=== PATIENT | female | born 1960 | race Caucasian/White ===

== ENCOUNTER 2016-12-13 10:52 | Emergency (ER) | payer MEDICARE ==
[2016-12-13 11:49] VITALS: BP 152/66
--- NOTE | 2016-12-13 12:46 | UC ---
Throat Pain/Nasal Haresh HPI - HPI Summary HPI Summary: complaint of nasal congestion and cough and right ear pain that started 2 days ago woke up this morning with sore throat slight headache denies fever and chills denies N/V/D denies feeling muscle aches hasn't neede to use albuterol inhaler during this illness using nasal spray and allergy medication without relief - History of Current Complaint Chief Complaint: UCRespiratory Stated Complaint: EARS/CONGESTION Time Seen by Provider: 12/13/16 12:40 Hx Obtained From: Patient Hx Last Menstrual Period: Years ago/hyst - Allergies/Home Medications Allergies/Adverse Reactions: Allergies Allergy/AdvReac Type Severity Reaction Status Date / Time Ciprofloxacin [From Cipro] Allergy Hives Verified 12/13/16 11:48 Meloxicam Allergy GI Upset Verified 12/13/16 11:48 Penicillins Allergy Hives Verified 12/13/16 11:48 Sulfa Antibiotics Allergy GI Upset Verified 12/13/16 11:48 Home Medications: Home Medications Sitagliptin Phosphate [Januvia] 100 mg PO DAILY 12/13/16 [History Confirmed 01/24] PMH/Surg Hx/FS Hx/Imm Hx Previously Healthy: Yes Endocrine History Of: Reports: Diabetes, Dyslipidemia Denies: Thyroid Disease, Hyperthyroidism, Hypothyroidism Cardiovascular History Of: Reports: Hypertension Denies: Cardiac Disorders, Pacemaker/ICD Respiratory History Of: Reports: Asthma Denies: COPD, Bronchitis, Pneumonia, Pulmonary Embolism GI/ History Of: Denies: Gastroesophageal Reflux, Ulcer, Gastrointestinal Bleed, Gall Bladder Disease, Kidney Stones, Diverticulitis, Renal Disease, Urosepsis Neurological History Of: Denies: TIA, CVA, Dementia, Seizures, Migraine Psychological History Of: Reports: Depression Denies: Anxiety, Bipolar Disorder, Schizophrenia, Post Traumatic Stress Disorder Cancer History Of: Denies: Lung Cancer, Colorectal Cancer, Breast Cancer, Prostate Cancer, Cervical Cancer Other History Of: Negative For: HIV, Hepatitis B, Hepatitis C, Anticoagulant Therapy - Surgical History Surgical History: Yes Surgery Procedure, Year, and Place: TONSILS 1967, PARTIAL HYSTERECTOMY 10 YRS AGO, 1985,R ANKLE SURGERY 1975 - Family History Known Family History: Positive: Hypertension, Diabetes, Other - cerebral anurysms in 3 siblings - Social History Occupation: Disabled Lives: With Family Alcohol Use: None 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 Substance Use Type: None Smoking Status (MU): Former Smoker Type: Cigarettes Amount Used/How Often: <1 PPD Length of Time of Smoking/Using Tobacco: 20 Years Have You Smoked in the Last Year: Yes - smokes when she's stressed When Did the Patient Quit Smoking/Using Tobacco: ~1996 Household Exposure Type: Cigarettes - Immunization History Most Recent Influenza Vaccination: Not the Season Review of Systems Constitutional: Negative Skin: Negative Eyes: Negative ENT: Ear Ache, Nasal Discharge Respiratory: Cough Cardiovascular: Negative Gastrointestinal: Negative Genitourinary: Negative Motor: Negative Neurovascular: Negative Musculoskeletal: Negative Neurological: Negative Psychological: Negative All Other Systems Reviewed And Are Negative: Yes Physical Exam Triage Information Reviewed: Yes Appearance: No Pain Distress, Well-Nourished, Obese Vital Signs: Initial Vital Signs Temp 98.2 F 12/13/16 11:46 Pulse 83 12/13/16 11:46 Resp 16 12/13/16 11:46 BP 152/66 12/13/16 11:46 Pulse Ox 97 12/13/16 11:46 Vital Signs Reviewed: Yes Eyes: Positive: Conjunctiva Clear ENT: Positive: Pharyngeal erythema, Nasal congestion, Nasal drainage, TMs normal. Negative: TM bulging, TM red Neck: Positive: No Lymphadenopathy Respiratory: Positive: Lungs clear, Normal breath sounds, No respiratory distress Cardiovascular: Positive: RRR, No Murmur, Pulses Normal Abdomen Description: Positive: Nontender, Soft Bowel Sounds: Positive: Present Musculoskeletal: Positive: No Edema Neurological: Positive: Alert Psychological Exam: Normal Skin Exam: Normal Throat Pain/Nasal Course/Dx - Differential Dx/Diagnosis Differential Diagnosis/HQI/PQRI: Pharyngitis, URI Provider Diagnoses: URI Discharge - Discharge Plan Condition: Stable Disposition: HOME Patient Education Materials: Upper Respiratory Infection (ED) Referrals: Oscar Goodman MD [Primary Care Provider] - Additional Instructions: VIRAL UPPER RESPIRATORY INFECTION (COMMON COLD) What is Viral Upper Respiratory Infection? Viral upper respiratory infection is the medical term for the common cold. Respiratory infections can be caused by either a virus or bacteria. The common cold is caused by a virus. The virus travels through the air and can be passed easily from one person to another. This is one reason that it is so important to cover your mouth when you cough or sneeze. When you cover your mouth you will get the virus on your hands. If you touch something with that hand the virus is spread to the object you touch. Because of this you should be sure to wash your hands often when you have a cold. Symptoms usually begin 1 to 3 days after the virus takes hold in your body. Other people can catch your cold even before you start to notice symptoms, which is one reason why colds are hard to prevent. Symptoms May Include: Scratchiness or tickling in the throat Sore throat Stuffy nose Generalized aches and pains Coughing or sneezing Feeling tired Treatment Recommendations: Drink plenty of clear, nonalcoholic fluids, such as water, sports drinks, or juice. For example, an average adult should drink 8 ounces every hour, a child 6 to 10 years should drink 4 ounces every hour, and a child under 6 should drink 1 to 2 ounces every hour. You should rest as much as possible. You can use a cool-mist humidifier or steam vaporizer to increase air moisture. This will make it easier to breathe. Remember that a steam vaporizer may contain hot water that can cause severe flores. If you smoke, stopsmoke irritates bronchial passages. If you are coughing up mucus, and milk seems to make the sputum thicker, do not eat or drink foods that contain milk. You want to try to cough up mucous whenever possible so that you dont get pneumonia. Do not use cough suppressant medicine without your healthcare providers [place]. You should take all medications prescribed until completely gone, or as instructed. Non-prescription medicine such as acetaminophen (Tylenol) or ibuprofen (Motrin , Advil) may help your aches, pains, and fever. Do not take someone else's medicine, or penicillin tablets that you may have saved. You could cause a more serious problem than you already have. Don't bundle up to sweat out a fever. It only makes your fever worse. If you feel cold, cover up; if you feel warm, dress lightly.
== END 2016-12-13 12:59 | disposition home or self-care (01) ==
LOC: UCCORT 10:52
DX: J06.9 Acute upper respiratory infection, unspecified (principal); R09.81 Nasal congestion; E66.9 Obesity, unspecified; E11.9 Type 2 diabetes mellitus without complications; E78.5 Hyperlipidemia, unspecified; Z88.0 Allergy status to penicillin; Z88.2 Allergy status to sulfonamides; Z88.1 Allergy status to other antibiotic agents; Z88.6 Allergy status to analgesic agent; Z87.891 Personal history of nicotine dependence
CPT/HCPCS: 99211; G0463

== ENCOUNTER 2017-02-12 18:46 | Emergency (ER) | payer MEDICARE ==
[2017-02-12 19:37] VITALS: BP 140/66
--- NOTE | 2017-02-12 20:06 | ED ---
Upper Extremity Pain - HPI Summary HPI Summary: 56 yr old female with left hand pain, mostly near her MP joint, onset many many months ago. She denies specific trauma. She has been out on disability for 17 yrs from work for cervical disk disease. The patient states she notes very mild swelling to the left hand at the 234 MP area where she points. No fever, no chills.pain localized to the hand but at times does radiate up her forearm. Pain made worse with moving her fingers. - History of Current Complaint Chief Complaint: UCUpperExtremity Stated Complaint: LT HAND INJURY Time Seen by Provider: 02/12/17 19:37 Hx Last Menstrual Period: Years ago/hyst - Allergies/Home Medications Allergies/Adverse Reactions: Allergies Allergy/AdvReac Type Severity Reaction Status Date / Time Ciprofloxacin [From Cipro] Allergy Hives Verified 02/12/17 19:37 Meloxicam Allergy GI Upset Verified 02/12/17 19:37 Penicillins Allergy Hives Verified 02/12/17 19:37 Sulfa Antibiotics Allergy GI Upset Verified 02/12/17 19:37 PMH/Surg Hx/FS Hx/Imm Hx Endocrine/Hematology History: Reports: Hx Diabetes Denies: Hx Anticoagulant Therapy, Hx Thyroid Disease Cardiovascular History: Reports: Hx Hypertension Denies: Hx Pacemaker/ICD Respiratory History: Reports: Hx Asthma Denies: Hx Chronic Obstructive Pulmonary Disease (COPD), Hx Lung Cancer, Hx Pneumonia, Hx Pulmonary Embolism GI History: Denies: Hx Gall Bladder Disease, Hx Gastrointestinal Bleed, Hx Ulcer, Hx Urosepsis History: Denies: Hx Kidney Stones, Hx Renal Disease Sensory History: Denies: Hx Hearing Aid Neurological History: Reports: Other Neuro Impairments/Disorders - family history of cerebral aneurysm (3 siblings) Denies: Hx Dementia, Hx Migraine, Hx Seizures, Hx Transient Ischemic Attacks (TIA) Psychiatric History: Reports: Hx Depression, Hx Panic Disorder - HX OF ANXIETY ATTACKS Denies: Hx Anxiety, Hx Schizophrenia, Hx Bipolar Disorder - Surgical History Surgery Procedure, Year, and Place: TONSILS 1967, PARTIAL HYSTERECTOMY 10 YRS AGO, 1985,R ANKLE SURGERY 1975 Infectious Disease History: No Infectious Disease History: Denies: Hx Clostridium Difficile, Hx Hepatitis, Hx Human Immunodeficiency Virus (HIV), Hx of Known/Suspected MRSA, Hx Shingles, Hx Tuberculosis, Hx Known/ Suspected VRE, Hx Known/Suspected VRSA, History Other Infectious Disease, Traveled Outside the [place] in Last 30 Days - Family History Known Family History: Positive: Hypertension, Diabetes, Other - cerebral anurysms in 3 siblings - Social History Alcohol Use: None 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 Substance Use Type: Reports: None Smoking Status (MU): Former Smoker Type: Cigarettes Amount Used/How Often: <1 PPD Length of Time of Smoking/Using Tobacco: 20 Years Have You Smoked in the Last Year: Yes - smokes when she's stressed Review of Systems Constitutional: Negative Eyes: Negative ENT: Negative Cardiovascular: Negative Respiratory: Negative Positive: Other - hand pain Skin: Negative Neurological: Negative All Other Systems Reviewed And Are Negative: Yes Physical Exam Triage Information Reviewed: Yes Vital Signs On Initial Exam: Initial Vitals Temp Pulse Resp BP Pulse Ox 97.5 F 87 18 140/66 98 02/12/17 19:30 02/12/17 19:30 02/12/17 19:30 02/12/17 19:30 02/12/17 19:30 Vital Signs Reviewed: Yes Appearance: Positive: Well-Appearing, No Pain Distress Skin: Positive: Warm, Skin Color Reflects Adequate Perfusion, Dry Head/Face: Positive: Normal Head/Face Inspection Eyes: Positive: Normal, EOMI ENT: Positive: Normal ENT inspection Neck: Positive: Supple Respiratory/Lung Sounds: Positive: Clear to Auscultation, Breath Sounds Present Cardiovascular: Positive: Normal, RRR Musculoskeletal: Positive: Other - mild tender to the left hand fingers and mp joints diffusely with mild swelling palmar surface of left hand near MP areas Neurological: Positive: Normal, Sensory/Motor Intact, Alert, Oriented to Person Place, Time, CN Intact II-III Diagnostics - Vital Signs Vital Signs Temp Pulse Resp BP Pulse Ox 02/12/17 19:30 97.5 F 87 18 140/66 98 - Laboratory Lab Statement: Any lab studies that have been ordered have been reviewed, and results considered in the medical decision making process. Course/Dx - Course Course Of Treatment: 56 yr old with osetoarthritis, dc home fu with PMD - Diagnoses Provider Diagnoses: Osteoarthritis of hand, left Discharge - Discharge Plan Condition: Good Disposition: HOME Patient Education Materials: Osteoarthritis (ED) Referrals: Oscar Goodman MD [Primary Care Provider] -
--- NOTE | 2017-02-12 20:20 | RAD ---
INDICATION: Severe LEFT hand pain since this morning without injury. COMPARISON: None. TECHNIQUE: AP, lateral, and oblique views LEFT hand. REPORT: Approximate 4 mm ulnar minus variance. Negative for fracture or focal osseous lesion. Minimal osteophytosis at the distal radioulnar joint and basal joint of the thumb without significant joint space narrowing. Unremarkable soft tissue contours. IMPRESSION: 1. Ulnar minus variance which may increased risk for avascular necrosis of the lunate. No radiographic abnormality of the lunate evident at this time. 2. Minor osteoarthritis.
== END 2017-02-12 20:28 | disposition home or self-care (01) ==
LOC: UCCORT 18:46
DX: M19.042 Primary osteoarthritis, left hand (principal); Z88.1 Allergy status to other antibiotic agents; Z88.0 Allergy status to penicillin; Z88.2 Allergy status to sulfonamides; E11.9 Type 2 diabetes mellitus without complications; I10 Essential (primary) hypertension; Z72.0 Tobacco use
CPT/HCPCS: 99211; G0463

== ENCOUNTER 2017-05-09 10:15 | Emergency (ER) | payer MEDICARE ==
[2017-05-09 10:44] VITALS: BP 132/77
--- NOTE | 2017-05-09 11:27 | UC ---
Throat Pain/Nasal Haresh HPI - HPI Summary HPI Summary: compalint of right ear pain that started last night intermittetn headaches allergies- nasal congestion for the last 4 days pain in right side of neck denies sore throat and cough tkain OTC allergy medication without relief taking acetaminpophen wiothout relief - History of Current Complaint Chief Complaint: UCRespiratory Stated Complaint: EAR PAIN Time Seen by Provider: 05/09/17 11:21 Hx Last Menstrual Period: Years ago/hyst - Allergies/Home Medications Allergies/Adverse Reactions: Allergies Allergy/AdvReac Type Severity Reaction Status Date / Time Ciprofloxacin [From Cipro] Allergy Hives Verified 05/09/17 10:44 Meloxicam Allergy GI Upset Verified 05/09/17 10:44 Penicillins Allergy Hives Verified 05/09/17 10:44 Sulfa Antibiotics Allergy GI Upset Verified 05/09/17 10:44 PMH/Surg Hx/FS Hx/Imm Hx Previously Healthy: Yes - seasonal allergies Endocrine History: Diabetes, Dyslipidemia Cardiovascular History: Hypertension GI/ History: Gastroesophageal Reflux Other History Of: Negative For: HIV, Hepatitis B, Hepatitis C, Anticoagulant Therapy - Surgical History Surgical History: Yes Surgery Procedure, Year, and Place: TONSILS 1967, PARTIAL HYSTERECTOMY 10 YRS AGO, 1985,R ANKLE SURGERY 1975 - Family History Known Family History: Positive: Hypertension, Diabetes, Other - cerebral anurysms in 3 siblings - Social History Occupation: Employed Part-time Lives: With Family Alcohol Use: None 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 Substance Use Type: None Smoking Status (MU): Former Smoker Type: Cigarettes Amount Used/How Often: <1 PPD Length of Time of Smoking/Using Tobacco: 20 Years Have You Smoked in the Last Year: Yes - smokes when she's stressed When Did the Patient Quit Smoking/Using Tobacco: ~1995 Household Exposure Type: Cigarettes - Immunization History Most Recent Influenza Vaccination: Not the 2014/2015 Season Review of Systems Constitutional: Negative Skin: Negative Eyes: Negative ENT: Ear Ache, Nasal Discharge Respiratory: Negative Cardiovascular: Negative Gastrointestinal: Negative Genitourinary: Negative Motor: Negative Neurovascular: Negative Musculoskeletal: Negative Neurological: Headache Psychological: Negative All Other Systems Reviewed And Are Negative: Yes Physical Exam Triage Information Reviewed: Yes Appearance: No Pain Distress, Well-Nourished, Obese Vital Signs: Initial Vital Signs Temp 98.1 F 05/09/17 10:37 Pulse 75 05/09/17 10:37 Resp 18 05/09/17 10:37 BP 132/77 05/09/17 10:37 Pulse Ox 100 05/09/17 10:37 Vital Signs Reviewed: Yes Eyes: Positive: Conjunctiva Clear ENT: Positive: Nasal congestion, Nasal drainage, TM bulging. Negative: TM red - extensive scarring on both TM's Neck: Positive: No Lymphadenopathy Respiratory: Positive: Lungs clear, Normal breath sounds, No respiratory distress Cardiovascular: Positive: RRR, No Murmur, Pulses Normal Abdomen Description: Positive: Nontender, Soft Bowel Sounds: Positive: Present Musculoskeletal: Positive: No Edema Neurological: Positive: Alert Psychological Exam: Normal Skin Exam: Normal Throat Pain/Nasal Course/Dx - Differential Dx/Diagnosis Differential Diagnosis/HQI/PQRI: Pharyngitis, Sinusitis, Tonsillitis Provider Diagnoses: eustachion tube dysfunction Discharge - Discharge Plan Condition: Stable Disposition: HOME Prescriptions: Fluticasone NASAL SPRAY 50MCG* [Flonase NASAL SPRAY 50MCG*] 2 spray BOTH NARES DAILY #1 btl Patient Education Materials: Earache (ED) Referrals: Oscar Goodman MD [Primary Care Provider] - Additional Instructions: Please start flonase as directed Increase fluids and rest Take acetaminophen for fever or pain Please review your discharge instructions. If your symptoms do not improve please call your primary care provider or return to urgent care.
== END 2017-05-09 11:37 | disposition home or self-care (01) ==
LOC: UCCORT 10:15
DX: H69.91 Unspecified Eustachian tube disorder, right ear (principal); F17.210 Nicotine dependence, cigarettes, uncomplicated
CPT/HCPCS: 99212; G0463

== ENCOUNTER 2017-05-16 12:11 | Emergency (ER) | payer MEDICARE ==
[2017-05-16 12:39] VITALS: BP 160/73
[2017-05-16] MEDS ORDERED: Ondansetron ODT TAB* 4 MG PO ONE (13:01)
--- NOTE | 2017-05-16 13:40 | UC ---
Abdominal Pain Female HPI - HPI Summary HPI Summary: Pt presents with c/o RUQ pain that has been "coming and going" since last week c /o intermittent nausea. Pt had a colonoscopy on 05/07/17. Pt reports that she was told "everything looked fine". Pt denies urinary symptoms, reports regular BM pattern. - History of Current Complaint Chief Complaint: UCAbdominalPain Stated Complaint: NAUSEA,ABD/LOW BACK PAIN Time Seen by Provider: 05/16/17 12:50 Hx Obtained From: Patient Hx Last Menstrual Period: Years ago/hyst ?: No Onset/Duration: Gradual Onset, Lasting Days Severity Initially: Mild Severity Currently: Mild Location: Discrete At: RUQ, Discrete At: RLQ Radiates: No Aggravating Factor(s): Nothing Alleviating Factor(s): Nothing Associated Signs and Symptoms: Positive: Nausea Allergies/Adverse Reactions: Allergies Allergy/AdvReac Type Severity Reaction Status Date / Time Ciprofloxacin [From Cipro] Allergy Hives Verified 05/16/17 12:22 Meloxicam Allergy GI Upset Verified 05/16/17 12:22 Penicillins Allergy Hives Verified 05/16/17 12:22 Sulfa Antibiotics Allergy GI Upset Verified 05/16/17 12:22 PMH/Surg Hx/FS Hx/Imm Hx Previously Healthy: Yes Other History Of: Negative For: HIV, Hepatitis B, Hepatitis C, Anticoagulant Therapy - Surgical History Surgical History: Yes Surgery Procedure, Year, and Place: TONSILS 1967, PARTIAL HYSTERECTOMY 10 YRS AGO, 1985,R ANKLE SURGERY 1975 - Family History Known Family History: Positive: Hypertension, Diabetes, Other - cerebral anurysms in 3 siblings - Social History Alcohol Use: None 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 Substance Use Type: None Smoking Status (MU): Former Smoker Type: Cigarettes Amount Used/How Often: <1 PPD Length of Time of Smoking/Using Tobacco: 20 Years Have You Smoked in the Last Year: Yes - smokes when she's stressed When Did the Patient Quit Smoking/Using Tobacco: ~1995 Household Exposure Type: Cigarettes - Immunization History Most Recent Influenza Vaccination: 2016 Most Recent Tetanus Shot: UTD Review of Systems Constitutional: Negative Skin: Negative Eyes: Negative ENT: Negative Respiratory: Negative Cardiovascular: Negative Gastrointestinal: Abdominal Pain - RUQ and RLQ, Nausea Genitourinary: Dysuria Motor: Negative Neurovascular: Negative Musculoskeletal: Negative Neurological: Negative Psychological: Negative All Other Systems Reviewed And Are Negative: Yes Physical Exam Triage Information Reviewed: Yes Appearance: Well-Appearing Vital Signs: Initial Vital Signs Temp 97.6 F 05/16/17 12:26 Pulse 89 05/16/17 12:26 Resp 24 05/16/17 12:26 BP 160/73 05/16/17 12:26 Pulse Ox 99 05/16/17 12:26 Eye Exam: Normal Neck exam: Normal Respiratory Exam: Normal Cardiovascular: Positive: Murmur:Sys:Grade _?_/ - 3/6 Abdominal Exam: Other Abdomen Description: Positive: Other: - RUQ, Musculoskeletal Exam: Normal Neurological Exam: Normal Psychological Exam: Normal Skin Exam: Normal Abd Pain Female Course/Dx - Differential Dx/Diagnosis Differential Diagnosis: Gall Bladder Disease, Urinary Tract Infection Provider Diagnoses: UTI. abdominal pain Discharge - Discharge Plan Condition: Stable Disposition: HOME Prescriptions: Nitrofurantoin Monohyd Macro [Macrobid] 100 mg PO Q12H #10 cap Ondansetron [Zofran 8 MG Odt] 8 mg PO Q8H PRN #12 tab PRN Reason: Nausea Patient Education Materials: Urinary Tract Infection in Women (ED), Abdominal Pain (ED) Referrals: Oscar Goodman MD [Primary Care Provider] - As Soon As Possible
== END 2017-05-16 13:51 | disposition home or self-care (01) ==
LOC: UCCORT 12:11
DX: N39.0 Urinary tract infection, site not specified (principal); R10.11 Right upper quadrant pain
CPT/HCPCS: 81003; 87077; 87086; 87186; 99212; A9270-GY; G0463

== ENCOUNTER 2017-10-09 13:44 | Emergency (ER) | payer MEDICARE ==
[2017-10-09 14:00] VITALS: BP 161/79
[2017-10-09] MEDS ORDERED: diPHENhydraMINE PO* 25 MG PO ONE (14:19)
--- NOTE | 2017-10-09 14:30 | UC ---
Throat Pain/Nasal Haresh HPI - HPI Summary HPI Summary: 1) FOUR DAYS OF HOARSE COUGH, SORE THROAT, SINUS PRESSURE AND FACIAL PAIN. 2) ITCGY RED RASH ON BACK OF LEFT HAND, NO NEW DETERGENTS, CONTACT EXPOSURE. NO RASHES ELSEWHERE. NO NEW MEDICATIONS. - History of Current Complaint Chief Complaint: UCRespiratory Stated Complaint: REPIRATORY Time Seen by Provider: 10/09/17 14:05 Hx Obtained From: Patient Hx Last Menstrual Period: Years ago/hyst Onset/Duration: Gradual Onset, Lasting Days, Still Present Severity: Mild Cough: Nonproductive Associated Signs & Symptoms: Positive: Hoarseness - Epiglottits Risk Factors Epiglottis Risk Factors: Negative - Allergies/Home Medications Allergies/Adverse Reactions: Allergies Allergy/AdvReac Type Severity Reaction Status Date / Time Ciprofloxacin [From Cipro] Allergy Hives Verified 10/09/17 13:50 Meloxicam Allergy GI Upset Verified 10/09/17 13:50 Penicillins Allergy Hives Verified 10/09/17 13:50 Sulfa Antibiotics Allergy GI Upset Verified 10/09/17 13:50 enviromental Allergy Unknown Unknown Uncoded 10/09/17 13:51 Reaction Details PMH/Surg Hx/FS Hx/Imm Hx Previously Healthy: Yes Other History Of: Negative For: HIV, Hepatitis B, Hepatitis C, Anticoagulant Therapy - Surgical History Surgical History: Yes Surgery Procedure, Year, and Place: TONSILS 1967, PARTIAL HYSTERECTOMY 10 YRS AGO, 1985,R ANKLE SURGERY 1975 - Family History Known Family History: Positive: Hypertension, Diabetes, Respiratory Disease, Other - cerebral anurysms in 3 siblings - Social History Occupation: Disabled Lives: With Family Alcohol Use: None 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 Substance Use Type: None Smoking Status (MU): Former Smoker Type: Cigarettes Amount Used/How Often: <1 PPD Length of Time of Smoking/Using Tobacco: 20 Years Have You Smoked in the Last Year: Yes - smokes when she's stressed When Did the Patient Quit Smoking/Using Tobacco: ~1995 Household Exposure Type: Cigarettes - Immunization History Most Recent Influenza Vaccination: 2016 Most Recent Tetanus Shot: UTD Review of Systems Constitutional: Chills Skin: Rash - LEFT DORSUM OF HAND Eyes: Negative ENT: Sore Throat, Ear Ache, Nasal Discharge, Sinus Congestion, Sinus Pain/ Tenderness Respiratory: Cough Cardiovascular: Negative Gastrointestinal: Negative Genitourinary: Negative Motor: Negative Neurovascular: Negative Musculoskeletal: Negative Neurological: Negative Psychological: Negative Is Patient Immunocompromised?: No All Other Systems Reviewed And Are Negative: Yes Physical Exam Triage Information Reviewed: Yes Appearance: Well-Appearing, No Pain Distress, Well-Nourished Vital Signs: Initial Vital Signs Temp 98.3 F 10/09/17 13:54 Pulse 86 10/09/17 13:54 Resp 18 10/09/17 13:54 BP 161/79 10/09/17 13:54 Pulse Ox 98 10/09/17 13:54 Vital Signs Reviewed: Yes Eye Exam: Normal ENT Exam: Normal ENT: Positive: Pharynx normal, Nasal congestion, TM bulging, TM dull Dental Exam: Normal Neck exam: Normal Neck: Positive: Supple, Nontender, No Lymphadenopathy Respiratory Exam: Other - COUGH Respiratory: Positive: Chest non-tender, Lungs clear, Normal breath sounds, No respiratory distress, No accessory muscle use Cardiovascular Exam: Normal Cardiovascular: Positive: RRR, No Murmur, Pulses Normal, Brisk Capillary Refill Abdominal Exam: Normal Abdomen Description: Positive: Nontender, No Organomegaly, Soft Musculoskeletal Exam: Normal Musculoskeletal: Positive: Strength Intact, ROM Intact Neurological Exam: Normal Psychological Exam: Normal Skin: Positive: rashes - ERYTHEMATOUS PATCH (3CM X 3CM ) DORSUM OF LEFT HAND Throat Pain/Nasal Course/Dx - Differential Dx/Diagnosis Differential Diagnosis/HQI/PQRI: Pharyngitis, Sinusitis, URI Provider Diagnoses: SINUSITIS; LEFT HAND CONTACT DERMATITIS Discharge - Discharge Plan Condition: Stable Disposition: HOME Prescriptions: Azithromycin TAB* [Zithromax TAB (Z-NOLAN) 250 mg #6 tabs] 250 mg PO DAILY #6 tab Patient Education Materials: Contact Dermatitis (ED), Sinusitis (ED) Referrals: Oscar Goodman MD [Primary Care Provider] -
== END 2017-10-09 14:38 | disposition home or self-care (01) ==
LOC: UCCORT 13:44
DX: J32.9 Chronic sinusitis, unspecified (principal); L25.9 Unspecified contact dermatitis, unspecified cause; Z88.1 Allergy status to other antibiotic agents; Z88.0 Allergy status to penicillin; Z88.2 Allergy status to sulfonamides; Z87.891 Personal history of nicotine dependence
CPT/HCPCS: 99212; A9270-GY; G0463

== ENCOUNTER 2017-12-06 12:29 | Emergency (ER) | payer MEDICARE ==
[2017-12-06 13:44] VITALS: BP 147/82
--- NOTE | 2017-12-06 14:46 | ED ---
Throat Pain/Nasal Congestion - History of Current Complaint Chief Complaint: UCGeneralIllness Time Seen by Provider: 12/06/17 14:23 - Allergies/Home Medications Allergies/Adverse Reactions: Allergies Allergy/AdvReac Type Severity Reaction Status Date / Time Ciprofloxacin [From Cipro] Allergy Hives Verified 12/06/17 13:35 Meloxicam Allergy GI Upset Verified 12/06/17 13:35 Penicillins Allergy Hives Verified 12/06/17 13:35 Sulfa Antibiotics Allergy GI Upset Verified 12/06/17 13:35 enviromental Allergy Unknown Unknown Uncoded 12/06/17 13:35 Reaction Details Home Medications: Home Medications Acetaminophen [Tylenol 8 Hour Arthritis] 650 mg PO Q8H PRN 12/06/17 [History Confirmed 12/06/17] PMH/Surg Hx/FS Hx/Imm Hx Endocrine/Hematology History: Reports: Hx Diabetes Denies: Hx Anticoagulant Therapy, Hx Thyroid Disease Cardiovascular History: Reports: Hx Hypertension Denies: Hx Pacemaker/ICD Respiratory History: Reports: Hx Asthma Denies: Hx Chronic Obstructive Pulmonary Disease (COPD), Hx Lung Cancer, Hx Pneumonia, Hx Pulmonary Embolism GI History: Denies: Hx Gall Bladder Disease, Hx Gastrointestinal Bleed, Hx Ulcer, Hx Urosepsis History: Denies: Hx Kidney Stones, Hx Renal Disease Sensory History: Denies: Hx Hearing Aid Neurological History: Reports: Other Neuro Impairments/Disorders - family history of cerebral aneurysm (3 siblings) Denies: Hx Dementia, Hx Migraine, Hx Seizures, Hx Transient Ischemic Attacks (TIA) Psychiatric History: Reports: Hx Depression, Hx Panic Disorder - HX OF ANXIETY ATTACKS Denies: Hx Anxiety, Hx Schizophrenia, Hx Bipolar Disorder - Surgical History Surgery Procedure, Year, and Place: TONSILS 1967, PARTIAL HYSTERECTOMY 10 YRS AGO, 1985,R ANKLE SURGERY 1975 Infectious Disease History: No Infectious Disease History: Denies: Hx Clostridium Difficile, Hx Hepatitis, Hx Human Immunodeficiency Virus (HIV), Hx of Known/Suspected MRSA, Hx Shingles, Hx Tuberculosis, Hx Known/ Suspected VRE, Hx Known/Suspected VRSA, History Other Infectious Disease, Traveled Outside the [place] in Last 30 Days - Family History Known Family History: Positive: Hypertension, Diabetes, Respiratory Disease, Other - cerebral anurysms in 3 siblings - Social History Alcohol Use: None 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 Substance Use Type: Reports: None Smoking Status (MU): Former Smoker Type: Cigarettes Amount Used/How Often: <1 PPD Length of Time of Smoking/Using Tobacco: 20 Years Have You Smoked in the Last Year: Yes - smokes when she's stressed Review of Systems Positive: Ear Ache, Nasal Discharge, Other - sinus pressure All Other Systems Reviewed And Are Negative: Yes Physical Exam Triage Information Reviewed: Yes Vital Signs On Initial Exam: Initial Vitals Temp Pulse Resp BP Pulse Ox 97.3 F 90 22 147/82 100 12/06/17 13:38 12/06/17 13:38 12/06/17 13:38 12/06/17 13:38 12/06/17 13:38 Vital Signs Reviewed: Yes Appearance: Positive: Well-Appearing, No Pain Distress Skin: Positive: Warm, Skin Color Reflects Adequate Perfusion Head/Face: Positive: Normal Head/Face Inspection Eyes: Positive: EOMI ENT: Positive: TM red - right with effusion, Sinus tenderness - bilateral Neck: Positive: Nontender Respiratory/Lung Sounds: Positive: Clear to Auscultation, Breath Sounds Present Cardiovascular: Positive: RRR. Negative: Murmur Musculoskeletal: Positive: Strength/ROM Intact Neurological: Positive: Sensory/Motor Intact, Alert, Oriented to Person Place, Time, CN Intact II-III Psychiatric: Positive: Normal - [place] Coma Scale Best Eye Response: 4 - Spontaneous Best Motor Response: 6 - Obeys Commands Best Verbal Response: 5 - Oriented Coma Scale Total: 15 Diagnostics - Vital Signs Vital Signs Temp Pulse Resp BP Pulse Ox 12/06/17 13:38 97.3 F 90 22 147/82 100 - Laboratory Lab Statement: Any lab studies that have been ordered have been reviewed, and results considered in the medical decision making process. EENT Course/Dx - Course Course Of Treatment: 57 yr old with otitis media and probable sinusitis. She states she does not do well with most antibiotics with allergies to the pencillin , cipro and sulf families. she usually uses zithromax without issue. She only wants zithromax prescribed. - Diagnoses Provider Diagnoses: Sinusitis, Otitis media, Hypertension Discharge - Discharge Plan Condition: Good Disposition: HOME Prescriptions: Azithromycin TAB* [Zithromax TAB (Z-NOLAN) 250 mg #6 tabs] 2 tab PO .TODAY, THEN 1 DAILY #1 nolan Patient Education Materials: Sinusitis (ED), Serous Otitis Media (ED), Hypertension (ED) Referrals: Oscar Goodman MD [Primary Care Provider] - 2 Days
== END 2017-12-06 15:01 | disposition home or self-care (01) ==
LOC: UCCORT 12:29
DX: J32.9 Chronic sinusitis, unspecified (principal); H66.90 Otitis media, unspecified, unspecified ear; E11.9 Type 2 diabetes mellitus without complications; I10 Essential (primary) hypertension; Z88.3 Allergy status to other anti-infective agents; Z88.0 Allergy status to penicillin; Z88.2 Allergy status to sulfonamides; J45.909 Unspecified asthma, uncomplicated; Z87.891 Personal history of nicotine dependence
CPT/HCPCS: 99212; G0463

== ENCOUNTER 2018-03-06 12:07 | Emergency (ER) | payer MEDICARE ==
[2018-03-06 13:04] VITALS: BP 156/68
[2018-03-06] MEDS ORDERED: Lidocaine 2% EPI 1:200000 MPF*10-20 ML VIAL INJ ONE (13:22)
--- NOTE | 2018-03-06 13:24 | UC ---
Skin Complaint HPI - HPI Summary HPI Summary: 58 year old female history of HTN, HLD, Asthma, DM here for right labial swelling and redness. She reports she gets recurrent boils and states it usually resolves on its own. This time, she developed swelling and redness 5 days ago and started purulent discharg 4 days ago after she tried to pop it. No f/c/n/v/d or any other complaints. - History of Current Complaint Chief Complaint: UCSkin Time Seen by Provider: 03/06/18 13:04 Stated Complaint: SKIN COMPLAINT PERSONAL AREA Hx Obtained From: Patient Hx Last Menstrual Period: Years ago/hyst ?: No Onset/Duration: Gradual Onset Skin Exposure Onset/Duration: Days Ago Onset Severity: Mild Current Severity: None Pain Intensity: 10 Location: Other - perineum Character: Swelling, Pain, Redness Aggravating Factor(s): Touch Alleviating Factor(s): Other - rest Associated Signs & Symptoms: Negative: Fever, Chills, Cough - Allergy/Home Medications Allergies/Adverse Reactions: Allergies Allergy/AdvReac Type Severity Reaction Status Date / Time ciprofloxacin Allergy Hives Verified 03/06/18 12:50 meloxicam Allergy GI Upset Verified 03/06/18 12:50 Penicillins Allergy Hives Verified 03/06/18 12:50 Sulfa (Sulfonamide Allergy GI Upset Verified 03/06/18 12:50 Antibiotics) enviromental Allergy Unknown Unknown Uncoded 12/06/17 13:35 Reaction Details Home Medications: Home Medications Amitriptyline TAB* [Elavil TAB*] 50 mg PO BEDTIME 03/06/18 [History Confirmed ] Insulin GLARGINE(*) [Lantus(*)] 25 units SUBCUT Q24H 03/06/18 [History Confirmed 03/06/18] Review of Systems Constitutional: Negative Skin: Other - redness and swelling over right labia Eyes: Negative ENT: Negative Respiratory: Negative Cardiovascular: Negative Gastrointestinal: Negative Genitourinary: Negative Motor: Negative Neurovascular: Negative Musculoskeletal: Negative Neurological: Negative Psychological: Negative Is Patient Immunocompromised?: No All Other Systems Reviewed And Are Negative: Yes PMH/Surg Hx/FS Hx/Imm Hx Previously Healthy: No Endocrine History: Diabetes Cardiovascular History: Hypertension Other History Of: Negative For: HIV, Hepatitis B, Hepatitis C, Anticoagulant Therapy - Surgical History Surgical History: Yes Surgery Procedure, Year, and Place: TONSILS 1967, PARTIAL HYSTERECTOMY 10 YRS AGO, 1985,R ANKLE SURGERY 1975 - Family History Known Family History: Positive: Hypertension, Diabetes, Respiratory Disease, Other - cerebral anurysms in 3 siblings - Social History Alcohol Use: None 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 Substance Use Type: None Smoking Status (MU): Former Smoker Type: Cigarettes Amount Used/How Often: <1 PPD Length of Time of Smoking/Using Tobacco: 20 Years Have You Smoked in the Last Year: Yes - smokes when she's stressed When Did the Patient Quit Smoking/Using Tobacco: ~1995 Household Exposure Type: Cigarettes - Immunization History Most Recent Influenza Vaccination: 2015 Most Recent Tetanus Shot: UTD Physical Exam Triage Information Reviewed: Yes Appearance: Well-Appearing, No Pain Distress, Well-Nourished Vital Signs: Initial Vital Signs Temp 36.6 C 03/06/18 12:51 Pulse 98 03/06/18 12:51 Resp 18 03/06/18 12:51 BP 156/68 03/06/18 12:51 Pulse Ox 99 03/06/18 12:51 Vital Signs Reviewed: Yes Eye Exam: Normal ENT Exam: Normal Respiratory Exam: Normal Cardiovascular Exam: Normal Cardiovascular: Positive: No Murmur Abdominal Exam: Normal Neurological Exam: Normal Skin: Positive: Other - 5cm fluctuant labia major abscess with slight surrounding erythema Course/Dx - Course Course Of Treatment: I&D performed in the ED. Since patientis allergice to sulfa and PCN, will rx doxy - Differential Diagnoses - Skin Complaint Differential Diagnoses: Abscess, Cellulitis - Diagnoses Provider Diagnoses: Abscess Procedures - Incision and Drainage Site: right labia abscess; only 1ml of discharge but loculated abscess Anesthesia: Lidocaine Instrument(s): Scalpel Packing: Gauze Discharge - Sign-Out/Discharge Documenting (check all that apply): Discharge/Admit/Transfer - Discharge Plan Condition: Good Disposition: HOME Prescriptions: DOXYcycline CAP(*) [DOXYcycline 100MG CAP(*)] 100 mg PO BID 10 Days #20 cap Ibuprofen TAB* [Motrin TAB* 600 MG] 600 mg PO Q6H PRN #40 tab PRN Reason: Pain Patient Education Materials: Abscess (ED), Abscess Follow-up (ED) Referrals: Oscar Goodman MD [Primary Care Provider] - Additional Instructions: Keep wound dry and clean. Return in two days for wound check - Billing Disposition and Condition Condition: GOOD Disposition: HOME Images Perineum Female: 1 - 5cm fluctuant lesion with surrounding erythema
[2018-03-06] MEDS ORDERED: Lidocaine 2% W/EPI 1:100,000* 20 ML MDV ONE (13:29)
--- NOTE | 2018-03-08 08:15 | UC ---
- Progress Note Progress Note: Positive MRSA. Finish all the antibiotics. Discharge - Sign-Out/Discharge Documenting (check all that apply): Discharge/Admit/Transfer - Discharge Plan Condition: Good Disposition: HOME Prescriptions: DOXYcycline CAP(*) [DOXYcycline 100MG CAP(*)] 100 mg PO BID 10 Days #20 cap Ibuprofen TAB* [Motrin TAB* 600 MG] 600 mg PO Q6H PRN #40 tab PRN Reason: Pain Patient Education Materials: Abscess (ED), Abscess Follow-up (ED) Referrals: Oscar Goodman MD [Primary Care Provider] - Additional Instructions: Keep wound dry and clean. Return in two days for wound check - Billing Disposition and Condition Condition: GOOD Disposition: HOME
== END 2018-03-06 13:54 | disposition home or self-care (01) ==
LOC: UCCORT 12:07
DX: N76.4 Abscess of vulva (principal); B95.62 Methicillin resistant Staphylococcus aureus infection as the cause of diseases classified elsewhere; Z16.11 Resistance to penicillins; Z16.29 Resistance to other single specified antibiotic; Z87.2 Personal history of diseases of the skin and subcutaneous tissue; Z87.891 Personal history of nicotine dependence; Z88.3 Allergy status to other anti-infective agents; Z88.0 Allergy status to penicillin; Z88.2 Allergy status to sulfonamides; Z88.8 Allergy status to other drugs, medicaments and biological substances
CPT/HCPCS: 10060; 56405; 87070; 87077; 87186; 87205; 87640; 87641; 99212; G0463

== ENCOUNTER 2018-03-08 10:58 | Emergency (ER) | payer MEDICARE ==
[2018-03-08 12:32] VITALS: BP 131/76
--- NOTE | 2018-03-08 13:13 | UC ---
Skin Complaint HPI - HPI Summary HPI Summary: Mrs. Choi is here today for wound recheck. Patient was here 2 days ago complaints of labial abscess for 5 days that drained a little bit for the past 4 days. Patient is diabetic and does occasionally get abscesses. Patient was seen and incision and drainage of right labia was performed. Sensitivity has not returned from the lab, initial lab reports are methicillin resistant staph aureus. Patient reports taking doxycycline twice a day is prescribed. Patient has been using warm compresses 1 or 2 times a day. She did not understand how to do a sitz bath. Patient reports large amount of drainage she's been using an old Towel in her panties. Patient has had no fevers. - History of Current Complaint Chief Complaint: UCSkin Time Seen by Provider: 03/08/18 13:00 Stated Complaint: RECHECK FROM 03/06/18 VISIT Hx Obtained From: Patient Hx Last Menstrual Period: Years ago/hyst ?: No Onset/Duration: Sudden Onset, Lasting Days - 5, Still Present Onset Severity: Moderate Current Severity: Moderate Pain Intensity: 5 Pain Scale Used: 0-10 Numeric Location: Discrete - Right labia majora Character: Pain, Redness, Raised Aggravating Factor(s): Touch Alleviating Factor(s): Nothing Associated Signs & Symptoms: Positive: Drainage, Tenderness - Allergy/Home Medications Allergies/Adverse Reactions: Allergies Allergy/AdvReac Type Severity Reaction Status Date / Time ciprofloxacin Allergy Hives Verified 03/08/18 12:29 meloxicam Allergy GI Upset Verified 03/08/18 12:29 Penicillins Allergy Hives Verified 03/08/18 12:29 Sulfa (Sulfonamide Allergy GI Upset Verified 03/08/18 12:29 Antibiotics) enviromental Allergy Unknown Unknown Uncoded 03/08/18 12:29 Reaction Details Review of Systems Constitutional: Negative Skin: Other - Recheck of incision right labia patient has continued pain and drainage labia is still swollen and tender to touch Eyes: Negative ENT: Negative Respiratory: Negative Cardiovascular: Negative Gastrointestinal: Negative Genitourinary: Negative Motor: Negative Neurovascular: Negative Musculoskeletal: Negative Neurological: Negative Psychological: Negative Is Patient Immunocompromised?: No All Other Systems Reviewed And Are Negative: Yes PMH/Surg Hx/FS Hx/Imm Hx Previously Healthy: No Endocrine History: Diabetes, Dyslipidemia Cardiovascular History: Hypertension GI/ History: Gastroesophageal Reflux Other History Of: Negative For: HIV, Hepatitis B, Hepatitis C, Anticoagulant Therapy - Surgical History Surgical History: Yes Surgery Procedure, Year, and Place: TONSILS 1967, PARTIAL HYSTERECTOMY 10 YRS AGO, 1985,R ANKLE SURGERY 1975 - Family History Known Family History: Positive: Hypertension, Diabetes, Respiratory Disease, Other - cerebral anurysms in 3 siblings - Social History Occupation: Disabled Lives: With Family Alcohol Use: None 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 Substance Use Type: None Smoking Status (MU): Former Smoker Type: Cigarettes Amount Used/How Often: <1 PPD Length of Time of Smoking/Using Tobacco: 20 Years Have You Smoked in the Last Year: Yes - smokes when she's stressed When Did the Patient Quit Smoking/Using Tobacco: ~1995 Household Exposure Type: Cigarettes - Immunization History Most Recent Influenza Vaccination: 2015 Most Recent Tetanus Shot: UTD Physical Exam Triage Information Reviewed: Yes Appearance: Ill-Appearing - Appears chronically older than stated age, Pain Distress - mild, Obese Vital Signs: Initial Vital Signs Temp 98.6 F 03/08/18 12:27 Pulse 96 03/08/18 12:27 Resp 16 03/08/18 12:27 BP 131/76 03/08/18 12:27 Pulse Ox 100 03/08/18 12:27 Vital Signs Reviewed: Yes Eye Exam: Normal Eyes: Positive: Conjunctiva Clear ENT Exam: Normal ENT: Positive: Normal ENT inspection, Hearing grossly normal. Negative: Muffled voice, Hoarse voice, Dental tenderness Dental Exam: Normal Neck exam: Normal Neck: Positive: Supple, Nontender Respiratory Exam: Normal Respiratory: Positive: Chest non-tender. Negative: No respiratory distress, No accessory muscle use Cardiovascular Exam: Normal Cardiovascular: Positive: RRR, Pulses Normal, Brisk Capillary Refill Pelvic Exam: Positive: Other - Right labia majora with continued open area from incision and center of right labial cyst. Cyst measures 5 cm in length and 2 cm in width. Skin below incision site is purulent and softening. There is no evidence of drainage on this exam or with gentle pressure applied to the cyst. There is no streaking there are no swollen inguinal lymph nodes Musculoskeletal Exam: Normal Musculoskeletal: Positive: Strength Intact, ROM Intact Neurological Exam: Normal Neurological: Positive: Alert, Muscle Tone Normal Psychological Exam: Normal Skin: Positive: Other - right Labial cyst with abscess as described Course/Dx - Course Course Of Treatment: Continue doxycycline. Use sitz bath 5-6 times a day AVD pads provided to patient for drainage. Peribottle also provided to patient to decrease pain with urination and promote hygiene. Patient encouraged to return tomorrow or follow with Dr. Goodman for recheck referral also for [facility] surgeon for surgical evaluation - Diagnoses Provider Diagnoses: right labial wound recheck Discharge - Sign-Out/Discharge Documenting (check all that apply): Discharge/Admit/Transfer - Discharge Plan Condition: Stable Disposition: HOME Patient Education Materials: Sitz Bath (DC), Warm Compress or Soak (ED) Referrals: Oscar Goodman MD [Primary Care Provider] - 03/09/18 Marlena Mora MD [Medical Doctor] - 03/09/18 Additional Instructions: Be sure to use sitz bath 5-6 times a day continue your doxycycline follow up with Dr. Tejeda Friday or Friday and also call [facility] for an appointment for follow-up both of the phone numbers have been provided to under discharge instructions - Billing Disposition and Condition Condition: STABLE Disposition: HOME
== END 2018-03-08 13:23 | disposition home or self-care (01) ==
LOC: UCCORT 10:58
DX: N76.4 Abscess of vulva (principal)
CPT/HCPCS: 99212; G0463